=== PATIENT | male | born 1940 | race Caucasian/White ===

== ENCOUNTER 2020-05-13 05:57 | Day surgery (SDC) | payer MEDICARE, BC ==
[2020-05-06 16:59] LABS: BASOPHILS % (AUTO) 0.7 % (0-1); EOSINOPHILS # (AUTO) 0.2 X10'3 (0-0.9); EOSINOPHILS % (AUTO) 4.5 % (0-6); LYMPHOCYTES # (AUTO) 1.3 X10'3 (1.1-4.8); LYMPHOCYTES % (AUTO) 27.6 % (21-51); MEAN CORPUSCULAR HEMOGLOBIN 33.7 PG (27.0-31.0); MEAN CORPUSCULAR HGB CONC 33.5 g/dL (33.0-36.5); MEAN CORPUSCULAR VOLUME 100.5 FL (78-98); MEAN PLATELET VOLUME 7.7 FL (7.4-10.4); MONOCYTES # (AUTO) 0.6 X10'3 (0-0.9); MONOCYTES % (AUTO) 14.1 % (2-12); NEUTROPHILS # (AUTO) 2.4 X10'3 (1.8-7.7); NEUTROPHILS % (AUTO) 53.1 % (42-75); PRE OP HEMOGLOBIN 15.1 g/dL (14.0-17.9); PRE OP PLATELET COUNT 243 X10'3 (140-440); RED BLOOD COUNT 4.48 X10'6 (4.70-6.10); RED CELL DISTRIBUTION WIDTH 13.4 % (11.5-14.5)
[2020-05-06 17:07] LABS: CLARITY,URINE CLEAR (Clear); COLOR,URINE YELLOW (Yellow); GLUCOSE, URINE NEGATIVE (Neg); KETONES,URINE NEGATIVE (Neg); LEUKOCYTE ESTERASE ,URINE NEGATIVE (Neg); NITRITES, URINE NEGATIVE (Neg); OCCULT BLOOD,URINE NEGATIVE (Neg); PH,URINE 5.5 (4.8-8.0); PROTEIN,URINE NEGATIVE (Neg); UA COLLECTION TYPE CLN CATCH MIDSTREAM; UROBILINOGEN,URINE 0.2 E.U/dL (0.2-1.0)
[2020-05-06 17:13] LABS: ALBUMIN 4.1 G/DL (3.4-5.0); ALBUMIN/GLOBULIN RATIO 1.2 (1.1-1.5); ALKALINE PHOSPHATASE 64 IU/L (46-116); BLOOD UREA NITROGEN 18 MG/DL (7-18); BUN/CREATININE RATIO 21.2 (5.4-32.0); CHLORIDE 103 MMOL/L (99-107); CREATININE 0.85 MG/DL (0.60-1.10); PRE OP ALT 29 U/L (30-65); PRE OP ANION GAP 8 (8-16); PRE OP AST 27 U/L (10-37); PRE OP BILIRUB, TOTAL 0.6 MG/DL (0.0-1.0); PRE OP GLUCOSE 93 MG/DL (70-104); PRE OP POTASSIUM 3.7 MMOL/L (3.4-5.1); PRE OP SODIUM 140 MMOL/L (135-145); TOTAL CARBON DIOXIDE 28.6 MMOL/L (24-32); TOTAL PROTEIN 7.4 G/DL (6.4-8.2); eGFR 87 ML/MIN
[~2020-05-13] VITALS: Ht 188 cm; Wt 99.8 kg
[2020-05-13] VITALS (17 sets, daily range): BP systolic 120–145; BP diastolic 47–89
[~2020-05-13 05:57] MED LIST: NO HOME MEDS; ceFAZolin 2gm in dextrose, iso 50 ML IV ONE; famotidine 20mg tablet PO ONE; ringers solution, lacted 1,000 ML IV SCH
[2020-05-13] MEDS ORDERED: morphine 2 MG/ML inj. syringe IV PRN (08:30)
[2020-05-13] MEDS ORDERED: ringers solution, lacted 1,000 ML IV SCH (08:30)
[2020-05-13] MEDS ORDERED: hydrALAZINE 20mg/ml inj. IV PRN (08:30)
[2020-05-13] MEDS ORDERED: morphine 4 MG/ML inj SYRINge IV PRN (08:30)
[2020-05-13] MEDS ORDERED: fentaNYL/PF 50MCG/1 ML 2ML syringe IV PRN ×2 (08:30)
[2020-05-13] MEDS ORDERED: labetalol 20mg/4ml (5mg/ml) syringe IV PRN (08:30)
[2020-05-13] MEDS ORDERED: ondansetron/PF 4mg/2ml inj IV PRN (08:30)
[2020-05-13] MEDS ORDERED: BUPIVAcaine/PF 2.5 mg/ml (0.25%) 30ml vial ONE (08:35)
[2020-05-13] MEDS ORDERED: ceFAZolin 1000mg inj ONE (08:35)
[2020-05-13] MEDS ORDERED: midazolam 2 mg/2 ml injection ONE (08:35)
[2020-05-13] MEDS ORDERED: fentaNYL/PF 50MCG/1 ML 2ML syringe ONE (08:35)
[2020-05-13] MEDS ORDERED: neostigmine methylsulfate 1 MG/ML 10ml vial ONE (08:37)
[2020-05-13] MEDS ORDERED: rocuronium 10mg/ml inj IV ONE ×2 (08:37→10:19)
[2020-05-13] MEDS ORDERED: dexamethasone sod phosphate 4mg/ml inj. ONE (08:37)
[2020-05-13] MEDS ORDERED: glycopyrrolate 0.2mg/ml inj ONE (08:37)
[2020-05-13] MEDS ORDERED: LIDOcaine 2% (20mg/ml) 5ml vial ONE (08:37)
[2020-05-13] MEDS ORDERED: propofol inj 20 ML IV ONE (08:37)
[2020-05-13] MEDS ORDERED: ondansetron/PF 4mg/2ml inj ONE (08:37)
[2020-05-13] MEDS ORDERED: sevoflurane 250ml liquid IH ONE (08:55)
--- NOTE | 2020-05-13 11:44 | NUR ---
Received from OR via [facility], accompanied by Anesthesiologist Nelida and report given by Anesthesiolgist. Lap sites x3 large to abdomen CDI. No carmen catheter. 20G to left hand IVF LR at 100cc/hr. Mask to 10L sats 96%, all VS stable.
[2020-05-13] MEDS ORDERED: HYDROcodone/acetaminophen 10/325mg tab PO ONE (12:50)
--- NOTE | 2020-05-13 16:14 | NUR ---
Pt discharged to vehicle by wheelchair without incident. IV DC'd, bandaids remain CDI. Pt voided prior to leaving, ambulated, all belongings returned. verbalized understanding of DC instructions on phone and pt did too. picked up prescription for pain meds prior to picking up patient.
== END 2020-05-13 16:14 | disposition home or self-care (01) ==
LOC: PAS 05:57
PROVIDERS: ATTEND Surgery
DX: K40.90 Unilateral inguinal hernia, without obstruction or gangrene, not specified as recurrent (principal); Z20.828 Contact with and (suspected) exposure to other viral communicable diseases; G47.00 Insomnia, unspecified; M19.90 Unspecified osteoarthritis, unspecified site; Z79.899 Other long term (current) drug therapy; Z96.653 Presence of artificial knee joint, bilateral; Z98.890 Other specified postprocedural states; Z98.41 Cataract extraction status, right eye; Z98.42 Cataract extraction status, left eye
CPT/HCPCS: 36415; 49650; 80053; 81003; 82948; 85025; 87635; 93005; C1758; C1781; J0690; J1100; J2001; J2250; J2270; J2405; J2704; J2710; J3010; J3490; J7120; A4215; A4618

== ENCOUNTER 2020-10-26 05:42 | Day surgery (SDC) | payer MEDICARE, BC ==
[2020-10-19 11:12] LABS: BASOPHILS % (AUTO) 0.6 % (0-1); EOSINOPHILS # (AUTO) 0.1 X10'3 (0-0.9); EOSINOPHILS % (AUTO) 2.8 % (0-6); LYMPHOCYTES # (AUTO) 0.8 X10'3 (1.1-4.8); LYMPHOCYTES % (AUTO) 17.7 % (21-51); MEAN CORPUSCULAR HEMOGLOBIN 34.1 PG (27.0-31.0); MEAN CORPUSCULAR HGB CONC 33.8 g/dL (33.0-36.5); MEAN CORPUSCULAR VOLUME 100.9 FL (78-98); MEAN PLATELET VOLUME 7.1 FL (7.4-10.4); MONOCYTES # (AUTO) 0.6 X10'3 (0-0.9); MONOCYTES % (AUTO) 12.1 % (2-12); NEUTROPHILS # (AUTO) 3.2 X10'3 (1.8-7.7); NEUTROPHILS % (AUTO) 66.8 % (42-75); PRE OP HEMATOCRIT 42.1 % (42.0-52.0); PRE OP HEMOGLOBIN 14.2 g/dL (14.0-17.9); PRE OP PLATELET COUNT 231 X10'3 (140-440); RED BLOOD COUNT 4.17 X10'6 (4.70-6.10)
[2020-10-19 11:33] LABS: ALBUMIN 3.8 G/DL (3.4-5.0); ALBUMIN/GLOBULIN RATIO 1.2 (1.1-1.5); ALKALINE PHOSPHATASE 72 IU/L (46-116); BLOOD UREA NITROGEN 22 MG/DL (7-18); BUN/CREATININE RATIO 23.2 (5.4-32.0); CALCIUM 8.4 MG/DL (8.5-10.1); CHLORIDE 107 MMOL/L (99-107); CREATININE 0.95 MG/DL (0.60-1.10); PRE OP ALT 28 U/L (30-65); PRE OP ANION GAP 8 (8-16); PRE OP AST 23 U/L (10-37); PRE OP BILIRUB, TOTAL 0.7 MG/DL (0.0-1.0); PRE OP GLUCOSE 100 MG/DL (70-104); PRE OP SODIUM 143 MMOL/L (135-145); TOTAL CARBON DIOXIDE 28.3 MMOL/L (24-32); TOTAL PROTEIN 6.9 G/DL (6.4-8.2); eGFR 77 ML/MIN
[~2020-10-26] VITALS: Ht 162.6 cm; Wt 76.7 kg
[~2020-10-26 05:42] MED LIST changes: -NO HOME MEDS; +ZOLP10TA PO; -ceFAZolin 2gm in dextrose, iso 50 ML IV ONE; +cefazolin/dext.iso 2gm/100ml IV ONE
[2020-10-26 06:30] VITALS: BP 140/85
[2020-10-26] MEDS ORDERED: BUPIVAcaine/PF 2.5mg/ml (0.25%) 10ml vial ONE (06:46)
[2020-10-26] MEDS ORDERED: LIDOcaine 0.5% (5mg/ml) 50ml vial ONE (07:23)
[2020-10-26] MEDS ORDERED: midazolam 1 mg/ML 2ml injection ONE (07:25)
[2020-10-26] MEDS ORDERED: fentaNYL/PF 50MCG/1 ML 2ML syringe ONE (07:25)
[2020-10-26] MEDS ORDERED: hydrALAZINE 20mg/ml inj. IV ONE (07:48)
[2020-10-26 07:50] VITALS: BP 131/80
--- NOTE | 2020-10-26 07:50 | NUR ---
ADMITTED TO PACU FROM OR ACCOMPANIED BY ANESTHESIA. INTIAL PHYSICAL ASSESSMENT DONE AND RECORDED. REPORT RECEIVED FROM ANESTHESIA.
[2020-10-26 08:00] VITALS: BP 132/83
[2020-10-26 08:10] VITALS: BP 147/83
[2020-10-26 08:20] VITALS: BP 140/80
[2020-10-26 08:30] VITALS: BP_SYST 143; BP_SYST 146; BP_DIAS 82; BP_DIAS 89
--- NOTE | 2020-10-26 08:30 | NUR ---
DISCHARGE CRITERIA MET, DISCHARGE INSTRUCTIONS GIVEN, DEMONSTRATES VERBAL UNDERSTANDING. DISCHARGED HOME IN GOOD CONDITION.
== END 2020-10-26 08:30 | disposition home or self-care (01) ==
LOC: PAS 05:42
PROVIDERS: ATTEND Orthopaedic Surgery Hand Surgery
DX: G56.01 Carpal tunnel syndrome, right upper limb (principal); M18.11 Unilateral primary osteoarthritis of first carpometacarpal joint, right hand; M19.031 Primary osteoarthritis, right wrist; G47.00 Insomnia, unspecified; Z98.890 Other specified postprocedural states; Z96.653 Presence of artificial knee joint, bilateral; Z98.49 Cataract extraction status, unspecified eye; Z79.899 Other long term (current) drug therapy
CPT/HCPCS: 36415; 64721; 80053; 82948; 85025; J0360; J2001; J2250; J3010; J3490; A4215; J7120

== ENCOUNTER 2021-05-12 06:15 | Day surgery (SDC) | payer MEDICARE, BC ==
[2021-05-06 15:26] LABS: BASOPHILS % (AUTO) 0.5 % (0-1); EOSINOPHILS # (AUTO) 0.1 X10'3 (0-0.9); EOSINOPHILS % (AUTO) 2.5 % (0-6); LYMPHOCYTES % (AUTO) 23.7 % (21-51); MEAN CORPUSCULAR HEMOGLOBIN 33.4 PG (27.0-31.0); MEAN CORPUSCULAR HGB CONC 33.6 g/dL (33.0-36.5); MEAN CORPUSCULAR VOLUME 99.3 FL (78-98); MEAN PLATELET VOLUME 7.3 FL (7.4-10.4); MONOCYTES # (AUTO) 0.5 X10'3 (0-0.9); MONOCYTES % (AUTO) 11.2 % (2-12); NEUTROPHILS # (AUTO) 2.5 X10'3 (1.8-7.7); NEUTROPHILS % (AUTO) 62.1 % (42-75); PRE OP HEMATOCRIT 41.2 % (42.0-52.0); PRE OP HEMOGLOBIN 13.9 g/dL (14.0-17.9); PRE OP PLATELET COUNT 236 X10'3 (140-440); RED BLOOD COUNT 4.15 X10'6 (4.70-6.10); RED CELL DISTRIBUTION WIDTH 13.2 % (11.5-14.5)
[2021-05-06 15:41] LABS: ALBUMIN 3.9 G/DL (3.4-5.0); ALBUMIN/GLOBULIN RATIO 1.1 (1.1-1.5); ALKALINE PHOSPHATASE 65 IU/L (46-116); BLOOD UREA NITROGEN 16 MG/DL (7-18); BUN/CREATININE RATIO 15.8 (5.4-32.0); CALCIUM 8.4 MG/DL (8.5-10.1); CHLORIDE 106 MMOL/L (99-107); CREATININE 1.01 MG/DL (0.60-1.10); PRE OP ALT 34 U/L (30-65); PRE OP ANION GAP 5 (8-16); PRE OP AST 27 U/L (10-37); PRE OP BILIRUB, TOTAL 0.7 MG/DL (0.0-1.0); PRE OP GLUCOSE 91 MG/DL (70-104); PRE OP POTASSIUM 3.9 MMOL/L (3.4-5.1); PRE OP SODIUM 142 MMOL/L (135-145); TOTAL CARBON DIOXIDE 30.9 MMOL/L (24-32); TOTAL PROTEIN 7.3 G/DL (6.4-8.2); eGFR 71 ML/MIN
[2021-05-06 15:49] LABS: CLARITY,URINE CLEAR (Clear); COLOR,URINE YELLOW (Yellow); PROTEIN,URINE NEGATIVE (Neg); UA COLLECTION TYPE CLN CATCH MIDSTREAM
[2021-05-06 15:50] LABS: GLUCOSE, URINE NEGATIVE (Neg); KETONES,URINE NEGATIVE (Neg); LEUKOCYTE ESTERASE ,URINE NEGATIVE (Neg); NITRITES, URINE NEGATIVE (Neg); OCCULT BLOOD,URINE TRACE-INTACT (Neg); UROBILINOGEN,URINE 0.2 E.U/dL (0.2-1.0)
[2021-05-06 15:58] LABS: BACTERIA,URINE FEW /HPF (Neg); RBC,URINE 0-2 /HPF (0-2); SQUAMOUS EPITHELIAL CELL,UR FEW /LPF (FEW); WBC,URINE 0-4 /HPF (0-4)
[2021-05-12] VITALS (12 sets, daily range): BP systolic 92–161; BP diastolic 52–88
[~2021-05-12] VITALS: Ht 188 cm; Wt 79.1 kg
[~2021-05-12 06:15] MED LIST changes: +ceFOXitin 2GM-NS 100mL ADDvant 100 ML IV ONE; -cefazolin/dext.iso 2gm/100ml IV ONE; -ringers solution, lacted 1,000 ML IV SCH
[2021-05-12] MEDS ORDERED: BUPIVAcaine/PF 2.5 mg/ml (0.25%) 30ml vial ONE (06:55)
[2021-05-12] MEDS: ringers solution, lacted 1,000 ML IV SCH ×2 (07:07→10:47)
[2021-05-12] MEDS ORDERED: midazolam 1 mg/ML 2ml injection ONE (09:39)
[2021-05-12] MEDS ORDERED: acetaminophen 1,000mg/100ml IV 100 ML IV PRN (09:40)
[2021-05-12] MEDS ORDERED: hydrALAZINE 20mg/ml inj. IV PRN (09:40)
[2021-05-12] MEDS ORDERED: labetalol 20mg/4ml (5mg/ml) syringe IV PRN (09:40)
[2021-05-12] MEDS ORDERED: ringers solution, lacted 1,000 ML IV SCH (09:40)
[2021-05-12] MEDS ORDERED: meperidine/PF 25mg/ml syringe IV PRN ×3 (09:40)
[2021-05-12] MEDS ORDERED: morphine 2 MG/ML inj. syringe IV PRN (09:40)
[2021-05-12] MEDS ORDERED: morphine 4 MG/ML inj SYRINge IV PRN (09:40)
[2021-05-12] MEDS ORDERED: ondansetron/PF 4mg/2ml inj IV PRN (09:40)
[2021-05-12] MEDS ORDERED: proCHLORperazine 10 MG/2 ml inj IV PRN (09:40)
[2021-05-12] MEDS ORDERED: LIDOcaine 2% (20mg/ml) 5ml vial ONE (09:53)
[2021-05-12] MEDS ORDERED: propofol inj 20 ML IV ONE (09:53)
[2021-05-12] MEDS ORDERED: rocuronium 10mg/ml inj IV ONE (09:53)
[2021-05-12] MEDS ORDERED: fentaNYL /PF 50mcg/ml 5ml ampule ONE (09:53)
[2021-05-12] MEDS ORDERED: dexamethasone sod phosphate 4mg/ml inj. ONE (09:54)
[2021-05-12] MEDS ORDERED: ondansetron/PF 4mg/2ml inj ONE (09:54)
[2021-05-12] MEDS ORDERED: 0.9 % SODIUM CHLORIDE 10 ML VIAL ONE (09:58)
[2021-05-12] MEDS ORDERED: ePHEDrine 50MG/ML INJ. ONE (09:58)
[2021-05-12] MEDS ORDERED: glycopyrrolate 0.2mg/ml inj ONE (10:31)
[2021-05-12] MEDS ORDERED: neostigmine methylsulfate 1 MG/ML 10ml vial ONE (10:31)
--- NOTE | 2021-05-12 10:37 | NUR ---
Received from OR via [facility], accompanied by Anesthesiologist DR ARIAS and report given by Anesthesiolgist. VVS. PT AWAKE YET DROZY, WILL FOLLOW MINIMAL COMMANDS. ABD SOFT/NONTENDER. INC WELL APPROX WITH DERMABOND CDI. IV PATENT WITH LR ON PUMP RIGHT HAND #20. COMPAZINE GIVEN ORDERED BY ANESTHESIA AT THE BEDSIDE FOR NAUSEA. Addendum: 05/12/21 at 1103 by Ella Moore RN Amended: Links added.
--- NOTE | 2021-05-12 11:37 | NUR ---
PT STATES NAUSEA IS MOSTLY RESOLVED. C/O ABD PAIN, TYLENOL IV GIVEN. DANYELLE SIPS OF PO WELL
--- NOTE | 2021-05-12 12:17 | NUR ---
VSS. STATES ADEQUATE PAIN RELIEF AND DENIES NAUSEA. STATES READINESS TO GO HOME. DC INSTRUCTIONS REVIEWED WITH PT AND WHO VERBALIZED UNDERSTANDING. ABD SOFT WITH DERMABOND CDI. IV DC'D WITH CANNULA INTACT. DC TO PVT AUTO WITH AND DTR TO RECEIVE. Addendum: 05/12/21 at 1238 by Ella Moore RN Amended: Links added.
== END 2021-05-12 12:17 | disposition home or self-care (01) ==
LOC: PAS 06:15
PROVIDERS: ATTEND Surgery
DX: K81.1 Chronic cholecystitis (principal); M19.90 Unspecified osteoarthritis, unspecified site; G47.30 Sleep apnea, unspecified; Z79.899 Other long term (current) drug therapy; Z20.822 Contact with and (suspected) exposure to COVID-19; Z96.653 Presence of artificial knee joint, bilateral; Z98.49 Cataract extraction status, unspecified eye; Z98.890 Other specified postprocedural states
CPT/HCPCS: 36415; 47562; 80053; 81001; 82948; 85025; 93005; J0131; J0694; J0780; J1100; J2001; J2250; J2405; J2704; J2710; J3010; J3490; J7120; U0003; U0005; Z7506; Z7512; 88304; A4215; A4618; A7000

== ENCOUNTER 2021-07-23 06:17 | Day surgery (SDC) | payer MEDICARE, BC ==
[2021-07-16 11:15] LABS: BASOPHILS % (AUTO) 0.8 % (0-1); EOSINOPHILS # (AUTO) 0.2 X10'3 (0-0.9); EOSINOPHILS % (AUTO) 5.2 % (0-6); LYMPHOCYTES # (AUTO) 0.9 X10'3 (1.1-4.8); LYMPHOCYTES % (AUTO) 27.3 % (21-51); MEAN CORPUSCULAR HGB CONC 33.8 g/dL (33.0-36.5); MEAN CORPUSCULAR VOLUME 100.4 FL (78-98); MEAN PLATELET VOLUME 7.6 FL (7.4-10.4); MONOCYTES # (AUTO) 0.5 X10'3 (0-0.9); NEUTROPHILS # (AUTO) 1.6 X10'3 (1.8-7.7); NEUTROPHILS % (AUTO) 51.7 % (42-75); PRE OP HEMATOCRIT 39.1 % (42.0-52.0); PRE OP HEMOGLOBIN 13.2 g/dL (14.0-17.9); PRE OP PLATELET COUNT 229 X10'3 (140-440); RED CELL DISTRIBUTION WIDTH 13.4 % (11.5-14.5)
[2021-07-16 11:33] LABS: ALBUMIN 3.8 G/DL (3.4-5.0); ALBUMIN/GLOBULIN RATIO 1.3 (1.1-1.5); ALKALINE PHOSPHATASE 68 IU/L (46-116); BLOOD UREA NITROGEN 22 MG/DL (7-18); BUN/CREATININE RATIO 23.9 (5.4-32.0); CALCIUM 8.5 MG/DL (8.5-10.1); CHLORIDE 105 MMOL/L (99-107); CREATININE 0.92 MG/DL (0.60-1.10); PRE OP ALT 32 U/L (30-65); PRE OP ANION GAP 5 (8-16); PRE OP AST 26 U/L (10-37); PRE OP BILIRUB, TOTAL 0.6 MG/DL (0.0-1.0); PRE OP GLUCOSE 93 MG/DL (70-104); PRE OP POTASSIUM 4.1 MMOL/L (3.4-5.1); PRE OP SODIUM 141 MMOL/L (135-145); TOTAL CARBON DIOXIDE 31.5 MMOL/L (24-32); TOTAL PROTEIN 6.7 G/DL (6.4-8.2); eGFR 80 ML/MIN
[~2021-07-23] VITALS: Ht 188 cm; Wt 82.4 kg
[~2021-07-23 06:17] MED LIST changes: +ceFAZolin 1,000 MG in NS 50ML IVPB IV ONE; -ceFOXitin 2GM-NS 100mL ADDvant 100 ML IV ONE; +cefazolin/dext.iso 2gm/50ml IV ONE; +ringers solution, lacted 1,000 ML IV SCH
[2021-07-23] MEDS ORDERED: LIDOcaine 1% 30ml preserv. free vial ONE ×2 (07:00→10:24)
[2021-07-23] MEDS ORDERED: BUPIVAcaine/PF 2.5mg/ml (0.25%) 10ml vial ONE ×2 (07:00→10:19)
[2021-07-23] MEDS ORDERED: midazolam 1 mg/ML 2ml injection ONE (10:28)
[2021-07-23] MEDS ORDERED: fentaNYL/PF 50MCG/1 ML 2ML syringe ONE (10:28)
[2021-07-23] MEDS ORDERED: ketorolac trometh. 30mg/ml inj. ONE (10:54)
[2021-07-23 11:01] VITALS: BP 137/76
--- NOTE | 2021-07-23 11:01 | NUR ---
Received from OR via , accompanied by Anesthesiologist DR DURAN and report given by Anesthesiolgist. AWAKENS TO VOICE. VITALS STABLE. DRESSING DI. ROCKY PAIN.
[2021-07-23 11:11] VITALS: BP 130/78
[2021-07-23 11:21] VITALS: BP 150/83
[2021-07-23 11:25] VITALS: BP 141/81
[2021-07-23 11:31] VITALS: BP 152/88
--- NOTE | 2021-07-23 11:41 | NUR ---
AWAKE AND ORIENTED. VITALS STABLE. DRESSING DI. ROCKY PAIN. HOME WITH HIS AT THIS TIME.
== END 2021-07-23 11:41 | disposition home or self-care (01) ==
LOC: PAS 06:17
PROVIDERS: ATTEND Orthopaedic Surgery Hand Surgery
DX: G56.02 Carpal tunnel syndrome, left upper limb (principal); M18.0 Bilateral primary osteoarthritis of first carpometacarpal joints; M19.031 Primary osteoarthritis, right wrist; G47.00 Insomnia, unspecified; Z98.890 Other specified postprocedural states; Z96.653 Presence of artificial knee joint, bilateral; Z90.49 Acquired absence of other specified parts of digestive tract; Z98.41 Cataract extraction status, right eye; Z98.42 Cataract extraction status, left eye; Z79.899 Other long term (current) drug therapy; Z20.822 Contact with and (suspected) exposure to COVID-19
CPT/HCPCS: 36415; 64721; 80053; 82948; 85025; J0690; J1885; J2250; J3010; J3490; J7030; J7120; U0003; Z7506; Z7512; A4215